=== PATIENT | male | born 1995 ===

== ENCOUNTER 2017-04-07 17:12 | Emergency (ER) | payer OTHER ==
[2017-04-07 19:07] VITALS: BP 126/82
--- NOTE | 2017-05-02 13:10 | ED ---
Marya Tracey Edward, scribed for Dionicio Hightower MD on 04/07/17 at 1837 . GI/ HPI - HPI Summary HPI Summary: 21 y/o male presents to the ED c/o sudden onset moderate penile pain s/p foreskin getting stuck at 04:00 this morning. Pt is uncircumcised. He states his foreskin "went back" and he was unable to get it back around the "first bump ". The tip of the penis is exposed and sensitive. Pt states this has happened before. - History of Current Complaint Chief Complaint: EDUrogenitalProblems Stated Complaint: SENSITIVITY IN PELVIC REGION Hx Obtained From: Patient Onset/Duration: Started Hours Ago, Still Present Timing: Constant Pain Intensity: 4 Location of Pain: Other - Tip of penis Additional Locations for Males: Penis - tip of penis Associated Signs and Symptoms: Positive: Negative - Allergy/Home Medications Allergies/Adverse Reactions: Allergies Allergy/AdvReac Type Severity Reaction Status Date / Time No Known Allergies Allergy Verified 04/07/17 17:20 PMH/Surg Hx/FS Hx/Imm Hx Previously Healthy: Yes Endocrine/Hematology History: Denies: Hx Diabetes Respiratory History: Reports: Hx Asthma - Surgical History Surgery Procedure, Year, and Place: tonsillectomy Infectious Disease History: No Infectious Disease History: Denies: Traveled Outside the [place] in Last 30 Days - Family History Known Family History: Positive: Diabetes - Grandmother - Social History Occupation: Student Lives: Dormitory/Roommates Review of Systems Negative: Fever, Chills Negative: Erythema Negative: Sore Throat Negative: Chest Pain Negative: Shortness Of Breath, Cough Negative: Abdominal Pain, Vomiting, Nausea Positive: pain - penile pain, foreskin stuck. Negative: dysuria, hematuria Negative: Myalgia, Edema Negative: Rash Neurological: Other - No dizziness All Other Systems Reviewed And Are Negative: Yes Physical Exam - Summary Physical Exam Summary: Constitutional: Well-developed, Well-nourished, Alert. (-) Distressed Skin: Warm, Dry HENT: Normocephalic; Atraumatic Eyes: Conjunctiva normal Neck: Musculoskeletal ROM normal neck. (-) JVD, (-) Stridor, (-) Tracheal deviation Cardio: Rhythm regular, rate normal, Heart sounds normal; Intact distal pulses; The pedal pulses are 2+ and symmetric. Radial pulses are 2+ and symmetric. (-) Murmur Pulmonary/Chest wall: Effort normal. (-) Respiratory distress, (-) Wheezes, (-) Rales Abd: Soft, (-) Tenderness, (-) Distension, (-) Guarding, (-) Rebound Musculoskeletal: (-) Edema Lymph: (-) Cervical adenopathy Neuro: Alert, Oriented x3 Psych: Mood and affect Normal GIGU: No evidence of phimosis or paraphimosis. Triage Information Reviewed: Yes Vital Signs On Initial Exam: Initial Vitals Temp Pulse Resp BP Pulse Ox 99.4 F 83 15 131/77 99 04/07/17 17:15 04/07/17 17:15 04/07/17 17:15 04/07/17 17:15 04/07/17 17:15 Vital Signs Reviewed: Yes Procedures - Procedure Summary Procedure Summary: Foreskin able to be fully re-etracted as well as pushed forward. We removed fungal material from below the base of the glands of the distal shaft of the penis. Diagnostics - Vital Signs Vital Signs Temp Pulse Resp BP Pulse Ox 04/07/17 17:15 99.4 F 83 15 131/77 99 - Laboratory Lab Statement: Any lab studies that have been ordered have been reviewed, and results considered in the medical decision making process. GIGU Course/Dx - Course Assessment/Plan: 21 y/o male presents to the ED c/o sudden onset moderate penile pain s/p foreskin getting stuck at 04:00 this morning. Pt is uncircumcised. He states his foreskin "went back" and he was unable to get it back around the "first bump". The tip of the penis is exposed and sensitive. Pt states this has happened before. Pt's foreskin able to be fully re-etracted as well as pushed forward. We removed fungal material from below the base of the glands of the distal shaft of the penis. Pt was given instructions to daily take a shower, use soap and water and dry completely before putting his foreskin back. I will prescribe a powder for the pt to use. The pt will be d/c home with f/u with urology. - Diagnoses Provider Diagnoses: Posthitis Discharge - Discharge Plan Condition: Stable Disposition: HOME Prescriptions: Talc [Zeasorb] 1 pow EX BID #1 pow Patient Education Materials: Foreskin Care (ED) Referrals: Vijay Duenas MD [Medical Doctor] - 4 Days (PLEASE F/U IN 3-5 DAYS) The documentation as recorded by the Marya jaramillo Edward accurately reflects the service I personally performed and the decisions made by me, Dionicio Hightower MD.
== END 2017-04-07 19:07 | disposition home or self-care (01) ==
LOC: ED 17:12
DX: N47.7 Other inflammatory diseases of prepuce (principal); N48.89 Other specified disorders of penis
CPT/HCPCS: 99282